=== PATIENT | female | born 1970 | race Caucasian/White ===

== ENCOUNTER 2019-01-01 07:10 | Day surgery (SDC) | payer OTHER ==
[2019-01-01] MEDS ORDERED: PROPOFOL INJ 200 MG/20 ML VIAL IV ONE (07:54)
[2019-01-01 09:15] VITALS: BP 120/66
--- NOTE | 2019-01-01 12:54 | Operative Report ---
Operative Report DATE OF SURGERY: 01/01/19 Operative Report: The risks, benefits and alternatives of the procedure including the risk of bleeding, perforation requiring surgery have been explained to the patient in detail and informed consent has been obtained. The patient has taken back to the endoscopy suite and placed in the left, lateral decubital position. Timeout was called. Propofol medication is administered. Rectal examination is done which did not reveal any masses, tears or fissures. An Olympus videoscope was introduced into the patient's rectum. Scope was then carefully advanced all the way to the cecum. The cecum was identified by the usual anatomical landmarks including the ileocecal valve as well as the appendiceal office. Photodocumentation is obtained. Scope was then sequentially pulled back via the various segments of the colon including the ascending colon, hepatic flexure, transverse colon, splenic flexure, descending colon and finally to the rectosigmoid portions of the colon. Retroflexion maneuvers performed. The risks benefits and alternatives of the procedure explained to the patient in detail and informed consent is obtained.A GIF Olympus video scope was inserted into the patient's mouth and hypopharynx, the esophagus is identified intubated and insufflated, the scope was then advanced through the esophagus stomach and duodenum, retroflexion maneuver is done, the esophagus stomach and first and second portions of the duodenum examined. PREOPERATIVE DIAGNOSIS: Blood in stool, gastroesophageal reflux disease POSTOPERATIVE DIAGNOSIS: Internal hemorrhoids. Right colon inflammation status post biopsy. Gastritis status post biopsy. Schatzki's ring that is broken. Esophagitis status post biopsy rule out Cummings's esophagus OPERATION: Colonoscopy with biopsy. EGD with biopsy SURGEON: JOSE ANTONIO DHILLON ANESTHESIA: LMAC TISSUE REMOVED OR ALTERED: As noted above. COMPLICATIONS: None. ESTIMATED BLOOD LOSS: None. INTRAOPERATIVE FINDINGS: As noted above. PROCEDURE: Patient tolerated the procedure well. No immediate postprocedure complications are noted. Patient is discharged in good condition. Discharge date 01/01/2019. Discharge diet: Regular. Discharge activity: Regular. 2 to 3-week follow-up to discuss findings. Patient is instructed to call the office or proceed to the emergency room should there be any further problems or questions. Wait on the pathology.
== END 2019-01-01 09:10 | disposition home or self-care (01) ==
LOC: END 07:10
PROVIDERS: ATTEND Internal Medicine Gastroenterology
DX: K21.0 Gastro-esophageal reflux disease with esophagitis (principal); K62.5 Hemorrhage of anus and rectum; K29.50 Unspecified chronic gastritis without bleeding; K64.8 Other hemorrhoids; K52.9 Noninfective gastroenteritis and colitis, unspecified; K22.2 Esophageal obstruction; E66.09 Other obesity due to excess calories; Z68.38 Body mass index [BMI] 38.0-38.9, adult; Z87.891 Personal history of nicotine dependence
CPT/HCPCS: 43239; 45380; 88342 ×2; 88305 ×2; J2704; 813

== ENCOUNTER 2019-04-20 08:12 | Day surgery (SDC) | payer OTHER ==
[~2019-04-20 08:12] MED LIST: LIDOCAINE 2% INJ-PF (20 MG/ML) 10 ML AMPUL ONE; PROPOFOL INJ 200 MG/20 ML VIAL IV ONE
[2019-04-20 10:04] VITALS: BP 120/67
--- NOTE | 2019-04-20 11:45 | Operative Report ---
Operative Report DATE OF SURGERY: 04/20/19 Operative Report: The risks benefits and alternatives of the procedure explained to the patient in detail and informed consent is obtained.A GIF Olympus video scope was inserted into the patient's mouth and hypopharynx ,the esophagus is identified intubated and insufflated ,the scope was then advanced through the esophagus stomach and duodenum, retroflexion maneuver is done ,the esophagus stomach and first and second portions of the duodenum examined PREOPERATIVE DIAGNOSIS: Surveillance for Cummings's esophagus POSTOPERATIVE DIAGNOSIS: Cummings's esophagus is resolved. Hiatal hernia. Gastritis status post biopsy rule out H. pylori OPERATION: EGD with biopsy SURGEON: JOSE ANTONIO DHILLON ANESTHESIA: LMAC TISSUE REMOVED OR ALTERED: As noted above. COMPLICATIONS: None. ESTIMATED BLOOD LOSS: None. INTRAOPERATIVE FINDINGS: As noted above. PROCEDURE: Patient tolerated the procedure well. No immediate postprocedure complications are noted. Patient is discharged in good condition. Discharge date 04/20/2019. Discharge diet: Regular. Discharge activity: Regular. 2 to 3-week follow-up to discuss findings. Patient is instructed to call the office or proceed to the emergency room should there be any further problems or questions. Wait on the pathology.
--- NOTE | 2019-04-24 13:04 | PDOC H&P ---
General Chief Complaint: followup for surveillance of Cummings's history of GERD - Current Medications/Allergies Home Medications: Atorvastatin Calcium [Lipitor 20 mg Tablet] 20 mg PO DAILY 12/28/18 Dextroamphetamine/Amphetamine [Adderall 10 mg Tablet] 30 mg PO BID 12/28/18 Pantoprazole Sodium 40 mg PO DAILY 12/28/18 Allergies/Adverse Reactions: No Known Allergies Allergy (Verified 04/20/19 08:04) Past Medical History Cardiac Medical History: Reports: Coronary Artery Disease Denies: Myocardial Infarction, Hypertension Pulmonary Medical History: Denies: Asthma, Bronchitis, Chronic Obstructive Pulmonary Disease (COPD), Pneumonia Neurological Medical History: Denies: Seizures Musculoskeltal Medical History: Denies: Arthritis Hematology: Denies: Anemia Family History Parental Family History Reviewed: Yes Children Family History Reviewed: Unknown Sibling(s) Family History Reviewed.: Unknown Social History Smoking Status: Never Smoker Electronic Cigarette use?: No Frequency of Alcohol Use: None Hx Recreational Drug Use: No Hx Prescription Drug Abuse: No Physical Exam Vital Signs: Temp Pulse Resp BP Pulse Ox 97.9 F 52 L 16 120/67 98 04/20/19 10:02 04/20/19 10:02 04/20/19 10:02 04/20/19 10:02 04/20/19 10:02 General appearance: PRESENT: no acute distress, well-developed, well-nourished Head exam: PRESENT: atraumatic, normocephalic Eye exam: PRESENT: EOMI, PERRLA. ABSENT: scleral icterus Mouth exam: PRESENT: moist, neck supple Neck exam: ABSENT: meningismus, tenderness, thyromegaly Respiratory exam: PRESENT: symmetrical, unlabored. ABSENT: tachypnea Cardiovascular exam: PRESENT: RRR, +S1, +S2 GI/Abdominal exam: PRESENT: normal bowel sounds, soft. ABSENT: Zimmerman's sign, rebound, rigid Extremities exam: ABSENT: joint swelling Musculoskeletal exam: PRESENT: full ROM Neurological exam: PRESENT: CN II-XII grossly intact Skin exam: PRESENT: normal color. ABSENT: mottled, urticaria, vesicles Impression/Plan Impression: proceed with EGD Risks, benefits and alternatives are discussed with the patient she is willing to proceed
== END 2019-04-20 10:08 | disposition home or self-care (01) ==
LOC: END 08:12
PROVIDERS: ATTEND Internal Medicine Gastroenterology
DX: K29.50 Unspecified chronic gastritis without bleeding (principal); K44.9 Diaphragmatic hernia without obstruction or gangrene; K21.9 Gastro-esophageal reflux disease without esophagitis; I25.10 Atherosclerotic heart disease of native coronary artery without angina pectoris; K64.8 Other hemorrhoids; E66.09 Other obesity due to excess calories; Z68.38 Body mass index [BMI] 38.0-38.9, adult; R73.03 Prediabetes; Z79.899 Other long term (current) drug therapy; Z87.891 Personal history of nicotine dependence
CPT/HCPCS: 43239; 88342 ×2; 88305 ×2; 00731; J2704; J3490; 731

== ENCOUNTER → 2019-07-27 | Outpatient (CLI) | payer OTHER ==
--- NOTE | 2019-07-27 11:31 | RADIOLOGY REPORT (SQ) ---
EXAM DESCRIPTION: UGI W/ DOUBLE CONTRAST IMAGES COMPLETED DATE/TIME: 07/27/2019 8:26 am REASON FOR STUDY: GERD (K21.9), HIATAL HERNIA (K44.9), HX JONES'S ESOPHAGUS (Z87.19) K21.9 GASTRO -ESOPHAGEAL REFLUX DISEASE WITHOUT ESOPHAGITIS K44.9 DIAPHRAGMATIC HERNIA WITHOUT OBSTRUCTION OR YANDEL GRENE Z87.19 PERSONAL HISTORY OF OTHER DISEASES OF THE DIGESTIVE S COMPARISON: None. TECHNIQUE: Under fluoroscopic guidance, patient ingested effervescent granules followed by thick and thin barium. Fluoroscopic spot images and routine radiographic images acquired and stored on PACS. 12 MM BARIUM TABLET GIVEN: Yes. No significant delay in passage. LIMITATIONS: None. FLUOROSCOPY TIME: FLUORO TIME: 2.9 MINUTES OF FLUOROSCOPY WAS USED. 19 or images saved to PACS. FINDINGS: NEUROMUSCULAR COORDINATION OF SWALLOW: Normal. No aspiration. ESOPHAGEAL MOTILITY: Normal peristalsis. No esophageal spasm. ESOPHAGEAL MUCOSA: Normal mucosa without masses or ulceration. GASTRO-ESOPHAGEAL JUNCTION: Small sliding hiatal hernia with moderate free-flowing gastroesophageal r eflux. 12 mm barium tablet passed through the GE junction without delay. STOMACH: Normal without masses or ulcerations. GASTRIC OUTLET: No delay in emptying. Normal pylorus. DUODENAL BULB: Normal distention. No spasm or ulceration. DUODENUM: Mucosa normal. No extrinsic masses or malrotation. PROXIMAL SMALL BOWEL: Mucosa normal. No extrinsic masses or malrotation. NON-GI TRACT STRUCTURES: No significant finding. OTHER: No other significant finding. IMPRESSION: A SMALL SLIDING HIATAL HERNIA WITH MODERATE FREE-FLOWING GASTROESOPHAGEAL REFLUX. THE S TOMACH AND DUODENUM ARE UNREMARKABLE. COMMENT: Quality ID [id number]: Final reports for procedures using fluoroscopy that document radiation exp osure indices, or exposure time and number of fluorographic images (if radiation exposure indices are not available) TECHNICAL DOCUMENTATION: JOB ID: [id number] 2010 [employer]- All Rights Reserved Reading location - IP/workstation name: [email or web address] [id number]
== END ==
LOC: RAD 07:43
PROVIDERS: ATTEND Surgery
DX: K21.9 Gastro-esophageal reflux disease without esophagitis (principal); K44.9 Diaphragmatic hernia without obstruction or gangrene; Z87.19 Personal history of other diseases of the digestive system
CPT/HCPCS: 74246

== ENCOUNTER 2019-10-22 05:27 | Observation (INO) | payer OTHER ==
[2019-10-18 10:23] LABS: ANION GAP 9 (5-19); BLOOD UREA NITROGEN 16 mg/dL (7-20); CALCIUM 9.5 mg/dL (8.4-10.2); CARBON DIOXIDE 28 mmol/L (22-30); CHLORIDE 101 mmol/L (98-107); GLUCOSE 109 mg/dL (75-110); HEMATOCRIT 38.9 % (36.0-47.0); HEMOGLOBIN 13.1 g/dL (12.0-15.5); MEAN CORPUSCULAR HEMOGLOBIN 30.1 pg (27.0-33.4); MEAN CORPUSCULAR HGB CONC 33.8 g/dL (32.0-36.0); MEAN CORPUSCULAR VOLUME 89 fl (80-97); PLATELET COUNT 270 10^3/uL (150-450); POTASSIUM 4.6 mmol/L (3.6-5.0); RED BLOOD COUNT 4.36 10^6/uL (3.72-5.28); WHITE BLOOD COUNT 6.4 10^3/uL (4.0-10.5)
--- NOTE | 2019-10-18 12:27 | EKG REPORT ---
SEVERITY:- NORMAL ECG - SINUS RHYTHM : Confirmed by: Cody Lopez MD 18-Oct-2019 12:26:49
[~2019-10-22 05:27] MED LIST changes: +CEFAZOLIN 2 GM/D5W RTU 2 GM/50 ML RTUPB IV ONE; +CEFAZOLIN 2 GM/D5W RTU 2 GM/50 ML RTUPB IV PRN; +LACTATED RINGERS 1000 ML IV PRN; -LIDOCAINE 2% INJ-PF (20 MG/ML) 10 ML AMPUL ONE; -PROPOFOL INJ 200 MG/20 ML VIAL IV ONE
[2019-10-22] MEDS ORDERED: BUPIVACAINE INJ/PF LIPOSOME/PF 266 MG/20 ML SDV ONE (07:05)
[2019-10-22] MEDS ORDERED: ONDANSETRON HCL INJ/PF 4 MG/2 ML SDV ONE (07:06)
[2019-10-22] MEDS ORDERED: MIDAZOLAM 2 MG/2 ML INJ ONE (07:06)
[2019-10-22] MEDS ORDERED: KETOROLAC TROMETHAMINE 60 MG/2 ML SDV ONE (07:06)
[2019-10-22] MEDS ORDERED: EPHEDRINE SULFATE INJ 50 MG/1 ML AMPULE ONE (07:06)
[2019-10-22] MEDS ORDERED: FENTANYL CITRATE INJ/PF 100 MCG/2 ML AMPUL ONE (07:06)
[2019-10-22] MEDS ORDERED: PROPOFOL INJ 200 MG/20 ML VIAL IV ONE (07:07)
[2019-10-22] MEDS ORDERED: MORPHINE SULFATE 10 MG/ML INJ IV PRN ×2 (08:13→08:49)
[2019-10-22] MEDS ORDERED: ONDANSETRON HCL INJ/PF 4 MG/2 ML SDV IV PRN (08:13)
[2019-10-22] MEDS ORDERED: PROMETHAZINE HCL INJ 25 MG/1 ML VIAL IV PRN ×2 (08:13)
[2019-10-22] MEDS ORDERED: FENTANYL CITRATE INJ/PF 100 MCG/2 ML AMPUL IV PRN ×3 (08:13)
[2019-10-22] MEDS ORDERED: DIPHENHYDRAMINE HCL 50 MG/ML VIAL IV PRN (08:13)
[2019-10-22] MEDS ORDERED: OXYCODONE-ACETAMINOPHEN 5-325 MG TABLET PO PRN ×2 (08:13)
[2019-10-22] MEDS ORDERED: MEPERIDINE HCL/PF INJ 25 MG/1 ML DISP.SYRIN IV PRN (08:13)
--- NOTE | 2019-10-22 08:49 | Operative Report ---
Nonrecallable Operative Report DATE OF SURGERY: 10/22/19 PREOPERATIVE DIAGNOSIS: gerd and barretts esophagus POSTOPERATIVE DIAGNOSIS: gerd and barretts esophagus OPERATION: laparoscopic sayra fundoplication SURGEON: XIAO CHUA DOCUMENT RESTORER: SHO SAMS ANESTHESIA: GA TISSUE REMOVED OR ALTERED: none COMPLICATIONS: none ESTIMATED BLOOD LOSS: 50cc INTRAOPERATIVE FINDINGS: see note PROCEDURE: Patient was brought to the operating room awake alert stable condition placed on the operative table supine position induced under general anesthesia and intubated. After appropriate timeout site verification the procedure commenced. A varies needle was placed into the umbilicus and the abdomen was insufflated 6 L of CO2 gas. An infraumbilical 10 mm incision was made with a 15 blade and a 10 mm port was placed in the abdominal cavity intra-abdominal visualization revealed no evidence of a varies needle or trocar injury. 2 epigastric ports were placed at 10 and a 5 and 2 lateral 5 mm ports were placed under direct vision. Stomach was identified the left lobe of the liver was retracted anteriorly and the cardia was identified. Patient had a very small hiatal hernia. Short gastric vessels were taken down between the greater curvature and the angle of Hiss. We identified the left slip of the marianela and then turned attention to the right side the gastrohepatic omentum was divided with the LigaSure device and the right slip of the marianela was identified. Esophagus was then mobilized from the posterior mediastinum into the abdominal cavity for approximately 6 cm. Once this was done the marianela was then closed posteriorly around a 58 Vietnamese bougie dilator with 2 stitches of 0 Surgidac placed in a [id number] fashion. Once this was completed the posterior wall of the fundus was passed posteriorly around the esophagus and fixed to itself anteriorly and the esophagus around the 58 Vietnamese bougie dilator with 3-0 Surgidac sutures creating a floppy Sayra wrap. This was approximately 1-1/2 cm in length and easily admitted a 10 mm instrument between the wrap and the and the esophagus. Once this was completed and hemostasis confirmed the pneumoperitoneum was reduced the ports were removed the fascial defects were closed with 0 Vicryl the skin was closed with intracuticular 4-0 Monocryl Steri-Strips completed the procedure estimated blood loss was 50 cc sponge and needle counts correct x2 patient was awakened in the operative extubated transferred recovery in stable condition no complications HAILEY Mckenzie was present for the entire procedure help with wound retraction wound closure
[2019-10-22] MEDS: FENTANYL CITRATE INJ/PF 100 MCG/2 ML AMPUL ONE ×2 (09:08→09:23)
[2019-10-22] MEDS ORDERED: SUCCINYLCHOLINE CHLORIDE INJ 200 MG/10 ML VIAL ONE ×2 (09:31)
[2019-10-22] MEDS ORDERED: VECURONIUM BROMIDE INJ 10 MG VIAL IV ONE (09:31)
[2019-10-22] MEDS ORDERED: NEOSTIGMINE METHYLSULFATE 10 MG/10 ML VIAL ONE (09:31)
[2019-10-22] MEDS ORDERED: GLYCOPYRROLATE 1 MG/5 ML VIAL ONE (09:31)
[2019-10-22] MEDS ORDERED: ACETAMINOPHEN 1,000 MG/100 ML RTUPB IV ONE ×2 (09:34→10:15)
[2019-10-22] MEDS ORDERED: MORPHINE SULFATE 10 MG/ML INJ ONE (10:01)
[2019-10-22] MEDS: FAMOTIDINE INJ/PF 20 MG/2 ML SDV IV SCH ×2 (12:15→22:36)
[2019-10-22] MEDS: ONDANSETRON HCL INJ/PF 4 MG/2 ML SDV IV PRN ×2 (16:39→22:37)
[2019-10-22] MEDS: POTASSI CL 20 MEQ/D5-1/2NS 1L 1,000 ML IV PRN (18:13)
[2019-10-23] MEDS: POTASSI CL 20 MEQ/D5-1/2NS 1L 1,000 ML IV PRN ×2 (00:52→08:22)
[2019-10-23] MEDS ORDERED: BISACODYL 10 MG SUPP.RECT PR ONE (09:00)
--- NOTE | 2019-10-23 09:07 | PDOC PROGRESS REPORT ---
Subjective Progress Note for:: 10/23/19 Subjective:: c/o lowerabd gas pain unable to pass flatus Reason For Visit: GASTROESOPHAGEAL REFLUX AND JONES'S ESOPHAGUS Physical Exam Vital Signs: Temp Pulse Resp BP Pulse Ox 98.1 F 72 16 143/71 H 98 10/23/19 08:05 10/23/19 08:05 10/23/19 08:05 10/23/19 08:05 10/23/19 08:05 Intake & Output 10/22/19 10/23/19 10/24/19 06:59 06:59 06:59 Intake Total 0 2017 1000 Output Total 860 Balance 0 1158 1000 Weight 111 kg 119.4 kg General appearance: PRESENT: mild distress Head exam: PRESENT: normocephalic Eye exam: PRESENT: EOMI Ear exam: PRESENT: normal external ear exam Mouth exam: PRESENT: moist Neck exam: PRESENT: full ROM Respiratory exam: PRESENT: clear to auscultation alexa Cardiovascular exam: PRESENT: RRR Pulses: PRESENT: normal radial pulses, normal femoral pulses Breast: PRESENT: Normal GI/Abdominal exam: PRESENT: soft Rectal exam: PRESENT: deferred Extremities exam: PRESENT: full ROM Musculoskeletal exam: PRESENT: full ROM Neurological exam: PRESENT: alert, awake, oriented to person, oriented to place, oriented to time, oriented to situation Psychiatric exam: PRESENT: appropriate affect Skin exam: PRESENT: dry Results Laboratory Results: 10/18/19 09:07 10/18/19 09:07 Assessment & Plan - Time Time Spent: 30 to 50 Minutes Critical Time spent with patient: 25-34 minutes Medications reviewed and adjusted accordingly: No Anticipated Discharge Disposition: Home, Self Care Anticipated Discharge Timeframe: within 24 hours - Plan Summary Plan Summary: pod 1 s/p lap ar doing ok, except unable to pass flatus abd soft non tender plan dulcolax supp increase activity if pt able to pass flatus and feels better will dc home later today' no isses with swallowing.
[2019-10-23] MEDS: FAMOTIDINE INJ/PF 20 MG/2 ML SDV IV SCH (09:20)
--- NOTE | 2019-10-23 12:19 | PDOC DISCHARGE SUMMARY ---
General - Admit/Disc Date/PCP Admission Date/Primary Care Provider: 10/22/19 08:49 LIZA CRUZ MD Discharge Date: 10/23/19 - Discharge Diagnosis Final Diagnosis: Gastroesophageal reflux disease hiatal hernia - Assessment Summary: Patient was admitted to the hospital on 10/22/2019 for an elective laparoscopic Sayra fundoplication. She underwent the procedure and tolerated well postoperatively she had a routine benign postop course. On postop day 1 she was tolerating full liquid diet and ready for discharge home. She will be discharged home on p.o. tramadol for pain and p.o. famotidine 20 mg p.o. twice daily She will follow-up with me in surgical clinic in 7 to 10 days. - Additional Information Resuscitation Status: Full Code Discharge Diet: Full Liquids Discharge Activity: Activity As Tolerated Referrals: XIAO BOBBY MD [ACTIVE STAFF] - 11/06/19 8:00 am (CALL THE OFFICE OF ANY QUESTIONS AND CONCERNS.) LIZA CRUZ MD [Primary Care Provider] - Prescriptions: Famotidine [Pepcid 20 mg Tablet] 20 mg PO BID #30 tablet Tramadol HCl [Ultram 50 mg Tablet] 50 mg PO Q6HP PRN #40 tablet PRN Reason: Home Medications: Atorvastatin Calcium [Lipitor 20 mg Tablet] 20 mg PO DAILY 12/28/18 Dextroamphetamine/Amphetamine [Adderall 10 mg Tablet] 30 mg PO BID 12/28/18 Pantoprazole Sodium 40 mg PO DAILY 12/28/18 Famotidine [Pepcid 20 mg Tablet] 20 mg PO BID #30 tablet 10/23/19 Tramadol HCl [Ultram 50 mg Tablet] 50 mg PO Q6HP PRN #40 tablet 10/23/19 History of Present Illiness History of Present Illness: RJ ALDRICH is a 49 year old female Physical Exam Vital Signs: Temp Pulse Resp BP Pulse Ox 98.0 F 61 18 142/72 H 98 10/23/19 11:08 10/23/19 11:08 10/23/19 11:08 10/23/19 11:08 10/23/19 11:08 Intake & Output 10/22/19 10/23/19 10/24/19 06:59 06:59 06:59 Intake Total 0 2017 1400 Output Total 860 Balance 0 1158 1400 Weight 111 kg 119.4 kg Results Laboratory Results: WBC 6.4 10^3/uL (4.0-10.5) 10/18/19 09:07 RBC 4.36 10^6/uL (3.72-5.28) 10/18/19 09:07 Hgb 13.1 g/dL (12.0-15.5) 10/18/19 09:07 Hct 38.9 % (36.0-47.0) 10/18/19 09:07 MCV 89 fl (80-97) 10/18/19 09:07 MCH 30.1 pg (27.0-33.4) 10/18/19 09:07 MCHC 33.8 g/dL (32.0-36.0) 10/18/19 09:07 RDW 13.0 % (11.5-14.0) 10/18/19 09:07 Plt Count 270 10^3/uL (150-450) 10/18/19 09:07 Sodium 137.9 mmol/L (137-145) 10/18/19 09:07 Potassium 4.6 mmol/L (3.6-5.0) 10/18/19 09:07 Chloride 101 mmol/L (98-107) 10/18/19 09:07 Carbon Dioxide 28 mmol/L (22-30) 10/18/19 09:07 Anion Gap 9 (5-19) 10/18/19 09:07 BUN 16 mg/dL (7-20) 10/18/19 09:07 Creatinine 1.01 mg/dL (0.52-1.25) 10/18/19 09:07 Est GFR ( Amer) > 60 (>60) 10/18/19 09:07 Est GFR (MDRD) Non-Af 58 (>60) L 10/18/19 09:07 Glucose 109 mg/dL (75-110) 10/18/19 09:07 Calcium 9.5 mg/dL (8.4-10.2) 10/18/19 09:07 Urine HCG, Qual NEGATIVE (NEGATIVE) 10/22/19 05:30 COVID-19 Source NASOPHARYNGEAL 10/18/19 09:05 COVID-19 ([facility]) NOT DETECTED 10/18/19 09:05
[2019-10-23 12:31] VITALS: BP 120/63
== END 2019-10-23 13:10 | disposition home or self-care (01) ==
LOC: OROUT 05:27 → 2N 08:49
PROVIDERS: ADMIT Surgery; ATTEND Surgery
DX: K44.9 Diaphragmatic hernia without obstruction or gangrene (principal); K22.70 Barrett's esophagus without dysplasia; K21.9 Gastro-esophageal reflux disease without esophagitis; R14.1 Gas pain; E78.00 Pure hypercholesterolemia, unspecified; F90.9 Attention-deficit hyperactivity disorder, unspecified type; G25.81 Restless legs syndrome; M19.90 Unspecified osteoarthritis, unspecified site; E66.9 Obesity, unspecified; Z87.891 Personal history of nicotine dependence; Z90.49 Acquired absence of other specified parts of digestive tract; Z98.51 Tubal ligation status; Z03.818 Encounter for observation for suspected exposure to other biological agents ruled out; Z79.899 Other long term (current) drug therapy
CPT/HCPCS: 36415; 790; 80048; 81025; 85027; 87635; 93005; 93010; 94799; C9290; C9803; G0378; J0131; J0330; J0690; J1885; J2250; J2270; J2405; J2704; J2710; J3010; J3480; J3490; S0028